=== PATIENT | female | born 1985 | race Two or more races ===

== ENCOUNTER → 2022-12-27 | Outpatient (CLI) | payer BC ==
[2022-12-27 09:07] LABS: Urine WBC None Seen /hpf (0 - 5)
[2022-12-27 09:16] LABS: Basophils # (auto) 0.1 10 ^3/uL (0-0.2); Basophils % (auto) 1.2 % (0.0-2.0); Eosinophils # (auto) 0.2 10 ^3/uL (0-0.8); Eosinophils % (auto) 3.1 % (0.0-7.0); Hematocrit 40.6 % (36.0-46.0); Hemoglobin 13.4 g/dL (12.2-16.2); Lymphocytes # (auto) 1.4 10 ^3/uL (0.4-5.4); Lymphocytes % (auto) 29.3 % (10.0-50.0); Mean Corpuscular Hemoglobin 27.6 pg (28.0-32.0); Mean Corpuscular Hgb Conc. 32.9 g/dL (32.0-36.0); Monocytes # (auto) 0.5 10 ^3/uL (0-1.3); Monocytes % (auto) 9.9 % (0.0-12.0); Neutrophils # (auto) 2.7 10 ^3/uL (1.6-8.6); Neutrophils % (auto) 56.5 % (37.0-80.0); Red Blood Cells 4.83 10^6/uL (4.0-5.20); Red Cell Distribution Width 14.3 % (11.8-14.3); White Blood Cell 4.8 10^3/uL (4.4-10.8)
[2022-12-27 09:47] LABS: Urine Bacteria NONE SEEN /hpf (None Seen); Urine Blood 3+ /uL (Negative); Urine Clarity Clear (Clear); Urine Color Yellow (Yellow); Urine Mucus FEW (None Seen); Urine Protein, UAD TRACE (Negative); Urine Urobilinogen Normal (Negative)
[2022-12-27 10:09] LABS: Erythrocyte Sedimentation Rate 9 mm/hr (0-20)
[2022-12-27 10:31] LABS: Alanine Aminotransferase 46 U/L (7-40); Alkaline Phosphatase 103 U/L (46-116); Anion Gap 6 (5-15); BUN/Creatinine Ratio 7.9 (10.0-20.0); Blood Urea Nitrogen 7 mg/dL (9-23); Calcium 9.2 mg/dL (8.5-10.1); Carbon Dioxide 26 mmol/L (20-30); Chloride 106 mmol/L (98-107); Glucose 122 mg/dL (74-106); LDL Cholesterol 74 mg/dL (< 100); Potassium 4.4 mmol/L (3.5-5.1); Sodium 138 mmol/L (136-145); Triglycerides 92 mg/dL (< 150)
[2022-12-27 10:32] LABS: Albumin 4.3 g/dL (3.2-4.8); Aspartate Aminotransferase 37 U/L (13-40); Cholesterol 135 mg/dL (< 200); HDL Cholesterol 48 mg/dL (40-59)
[2022-12-27 10:33] LABS: Bilirubin, Total 0.6 mg/dL (0.2-1.0); Total Protein 7.8 g/dL (5.7-8.2)
== END | disposition home or self-care (01) ==
LOC: LAB 08:57
PROVIDERS: ATTEND Internal Medicine
DX: D17.23 Benign lipomatous neoplasm of skin and subcutaneous tissue of right leg (principal)
CPT/HCPCS: 36415; 80053; 80061; 81001; 84439; 84443; 85025; 85652

== ENCOUNTER → 2024-02-25 | Outpatient (CLI) | payer BC ==
[2024-02-25 07:26] LABS: Urine Bacteria None Seen /hpf (None Seen)
[2024-02-25 08:09] LABS: Basophils # (auto) 0 10 ^3/uL (0-0.2); Basophils % (auto) 0.5 % (0.0-2.0); Eosinophils # (auto) 0.2 10 ^3/uL (0-0.8); Eosinophils % (auto) 2.3 % (0.0-7.0); Hematocrit 40.3 % (36.0-46.0); Hemoglobin 13.3 g/dL (12.2-16.2); Lymphocytes # (auto) 2.3 10 ^3/uL (0.4-5.4); Mean Corpuscular Volume 84.8 fL (80.0-100.0); Monocytes # (auto) 0.5 10 ^3/uL (0-1.3); Monocytes % (auto) 5.6 % (0.0-12.0); Neutrophils # (auto) 6.2 10 ^3/uL (1.6-8.6); Neutrophils % (auto) 66.6 % (37.0-80.0); Platelet Count (auto) 290 10^3/uL (140-450); Red Blood Cells 4.75 10^6/uL (4.0-5.20); Red Cell Distribution Width 14.4 % (11.8-14.3); White Blood Cell 9.3 10^3/uL (4.4-10.8)
[2024-02-25 08:43] LABS: Urine Blood Negative /uL (Negative); Urine Clarity Clear (Clear); Urine Color Yellow (Yellow); Urine Mucus FEW (None Seen); Urine Protein, UAD TRACE (Negative); Urine Specific Gravity 1.029 (1.001-1.035); Urine Urobilinogen Normal (Negative); Urine WBC 5 /hpf (0 - 5)
[2024-02-25 08:53] LABS: Alanine Aminotransferase 19 U/L (7-40); Albumin 4.4 g/dL (3.2-4.8); Alkaline Phosphatase 106 U/L (46-116); Anion Gap 8 (5-15); Aspartate Aminotransferase 19 U/L (13-40); Bilirubin, Total 0.6 mg/dL (0.2-1.0); Blood Urea Nitrogen 11 mg/dL (9-23); Calcium 10.1 mg/dL (8.7-10.4); Carbon Dioxide 27 mmol/L (20-31); Chloride 105 mmol/L (98-107); Cholesterol 139 mg/dL (< 200); HDL Cholesterol 56 mg/dL (40-59); LDL Cholesterol 73 mg/dL (< 100); Potassium 4.1 mmol/L (3.5-5.1); Sodium 140 mmol/L (136-145); Total Protein 7.6 g/dL (5.7-8.2); Triglycerides 97 mg/dL (< 150)
[2024-02-25 08:55] LABS: Glucose 118 mg/dL (74-106)
[2024-02-25 09:02] LABS: Erythrocyte Sedimentation Rate 15 mm/hr (0-20)
[2024-02-25 11:11] LABS: Free T4 (Free Thyroxine) 1.08 ng/dL (0.89-1.76)
== END | disposition home or self-care (01) ==
LOC: LAB 07:06
PROVIDERS: ATTEND Internal Medicine
DX: I10 Essential (primary) hypertension (principal); E11.9 Type 2 diabetes mellitus without complications; Z79.899 Other long term (current) drug therapy
CPT/HCPCS: 36415; 80053; 80061; 81001; 82607; 83036; 84439; 84443; 85025; 85652

== ENCOUNTER 2024-10-21 08:39 | Inpatient (IN) | payer BC ==
[~2024-10-21] VITALS: Ht 154.9 cm; Wt 92.1 kg
--- NOTE | 2024-10-21 09:38 | ED.PDOC ---
General HPI Comments 39 y/o F, with PMHx of DM and HTN presents to the ED for CC of flank pain. Patient states, she has been experiencing right flank pain onset, yesterday (10/20/24). Patient denies dysuria, frequency, back pain, fever, nausea, vomiting, or diarrhea. No other associated symptoms, modifiers, recent injuries or sick contacts present at this time. Chief Complaint: Flank Pain Time Seen by MD: 09:10 Reviewed notes: Nurses Notes, Medications, Allergies Allergies: Coded Allergies: NO KNOWN ALLERGIES (Unverified , 10/21/24) Information Source: Patient Mode of Arrival: Ambulatory Severity: Moderate Timing: Days Duration: Since onset Prehospital treatment: None Symptoms: None History of: None Location: (R) Flank Modifying factors: None associated signs and symptoms: Flank Pain Past Medical History PAST MEDICAL HISTORY: DM, HTN Surgical History: Denies all surgeries ENGINEERING SPECIALIST TECHNICIAN History: Denies all ENGINEERING SPECIALIST TECHNICIAN Hx Family History Family History: Unknown Social History Smoker: Non-Smoker Alcohol: Denies ETOH Use Drugs: Denies Drug Use Lives In: Home Constitutional: denies: chills, diaphoresis, fatigue, fever, malaise, sweats, weakness, others EENTM: denies: blurred vision, double vision, ear bleeding, ear discharge, ear drainage, ear pain, ear ringing, eye pain, eye redness, hearing loss, mouth pain, mouth swelling, nasal discharge, nose bleeding, nose congestion, nose pain, photophobia, tearing, throat pain, throat swelling, voice changes, others Respiratory: denies: cough, hemoptysis, orthopnea, SOB at rest, shortness of breath, SOB with excertion, stridor, wheezing, others Cardiovascular: denies: chest pain, dizzy spells, diaphoresis, Dyspnea on exertion, edema, irregular heart beat, left arm pain, lightheadedness, palpitations, PND, syncope, others Gastrointestinal: denies: abdomen distended, abdominal pain, blood streaked bowels, constipated, diarrhea, dysphagia, difficulty swallowing, hematemesis, melena, nausea, poor appetite, poor fluid intake, rectal bleeding, rectal pain, vomiting, others Genitourinary: reports: flank pain; denies: abnormal vagina bleeding, burning, dyspareunia, dysuria, frequency, hematuria, incontinence, pain, , vagina discharge, urgency, others Neurological: denies: dizziness, fainting, headache, left sided numbness, left sided weakness, numbness, paresthesia, pre-existing deficit, right sided numbness, right sided weakness, seizure, speech problems, tingling, tremors, weakness, others Musculoskeletal: denies: back pain, gout, joint pain, joint swelling, muscle pain, muscle stiffness, neck pain, others Integumetry: denies: bruises, change in color, change in hair/nails, dryness, laceration, lesions, lumps, rash, wounds, others Allergic/Immunocompromised: denies: Difficulty Healing, Frequent Infections, H kaushik, Itching, others Hematologic/Lymphatic: denies: anemia, blood clots, easy bleeding, easy bruising, swollen glands, others Endocrine: denies: excessive hunger, excessive sweating, excessive thirst, excessive urination, flushing, intolerance to cold, intolerance to heat, unexplained weight gain, unexplained weight loss, others Psychiatric: denies: anxiety, bipolar disorder, depression, hopeless, panic disorder, schizophrenia, sleepless, suicidal, others All Other Systems: Reviewed and Negative Physical Exam General Appearance: Moderate Distress HEENT: Normal ENT Inspection, Pharynx Normal, TMs Normal Neck: Full Range of Motion, Non-Tender, Normal, Normal Inspection Respiratory: Chest Non-Tender, Lungs Clear, No Accessory Muscle Use, No Respiratory Distress, Normal Breath Sounds Cardiovascular: No Edema, No JVD, No Murmur, No Gallop, Normal Peripheral Pulses, Regular Rate/Rhythm Breast Exam: Deferred Gastrointestinal: RUQ Genitalia: Deferred Pelvic: Deferred Rectal: Deferred Extremities: No calf tenderness, Normal capillary refill, Normal inspection, Normal range of motion, Non-tender, No pedal edema Musculoskeletal : Apperance: Normal Neurologic: Alert, managing consultant clinical professor II-XII nml as Tested, No Motor Deficits, Normal Affect, Normal Mood, No Sensory Deficits Cerebellar Function: Normal Reflexes: Normal Skin: Dry, Normal Color, Warm Peripheral Pulses: 3+ Radial (R), 3+ Radial (L) Lymphatic: No Adenopathy Was a procedure done? Was a procedure done?: No Differential Diagnosis Kidney stone (Female): Cholelithiasis, Pyelonephritis, Urinary obstruction, Urolithiasis Kidney stone (Male): N/A Penile/Scrotal: N/A Urinary Problem (Male): N/A X-Ray, Labs, Meds, VS Vital Signs Date Time Temp Pulse Resp B/P (MAP) Pulse Ox O2 Delivery O2 Flow Rate FiO2 10/21/24 08:41 98.3 132 20 145/97 96 98.3 Lab Test 10/21/24 09:21 10/21/24 08:45 Range/Units White Blood Count 14.2 H 4.4-10.8 10^3/uL Red Blood Count 5.13 4.0-5.20 10^6/uL Hemoglobin 14.4 12.2-16.2 g/dL Hematocrit 42.8 36.0-46.0 % Mean Corpuscular Volume 83.4 80.0-100.0 fL Mean Corpuscular Hemoglobin 28.0 28.0-32.0 pg Mean Corpuscular Hemoglobin Concent 33.6 32.0-36.0 g/dL Red Cell Distribution Width 13.8 11.8-14.3 % Platelet Count 339 140-450 10^3/uL Mean Platelet Volume 9.9 6.9-10.8 fL Neutrophils (%) (Auto) 80.9 H 37.0-80.0 % Lymphocytes (%) (Auto) 11.2 10.0-50.0 % Monocytes (%) (Auto) 7.3 0.0-12.0 % Eosinophils (%) (Auto) 0.4 0.0-7.0 % Basophils (%) (Auto) 0.2 0.0-2.0 % Neutrophils # (Auto) 11.5 H 1.6-8.6 10 ^3/uL Lymphocytes # (Auto) 1.6 0.4-5.4 10 ^3/uL Monocytes # (Auto) 1.0 0-1.3 10 ^3/uL Eosinophils # (Auto) 0.1 0-0.8 10 ^3/uL Basophils # (Auto) 0 0-0.2 10 ^3/uL Nucleated Red Blood Cells 0.1 % Sodium Level 138 136-145 mmol/L Potassium Level 4.1 3.5-5.1 mmol/L Chloride Level 104 98-107 mmol/L Carbon Dioxide Level 20 20-31 mmol/L Anion Gap 14 5-15 Blood Urea Nitrogen 10 9-23 mg/dL Creatinine 1.01 0.550-1.02 mg/dL Glomerular Filtration Rate Calc 72 >90 mL/min BUN/Creatinine Ratio 9.9 L 10.0-20.0 Serum Glucose 145 H 74-106 mg/dL Calcium Level 9.8 8.7-10.4 mg/dL Urine Color Light-orange Yellow Urine Clarity Turbid H Clear Urine pH 6.0 5.0-9.0 Urine Specific [place] 1.029 1.001-1.035 Urine Protein 2+ H Negative Urine Ketones 4+ H Negative Urine Blood Trace H Negative /uL Urine Nitrite Negative Negative Urine Bilirubin 1+ H Negative Urine Urobilinogen 3 H Negative mg/dL Urine Leukocyte Esterase 3+ Negative /uL Urine RBC 11 0 - 4 /hpf Urine Microscopic WBC 81 H 0-5 /HPF Urine Squamous Epithelial Cells Mod <5 /hpf Urine Bacteria Few H None Seen /hpf Urine Hyaline Casts Few 0 - 2 /lpf Urine Mucus Few None Seen Urine Glucose Trace Normal mg/dL [place] [id number] Ph: [phone] DIAGNOSTIC IMAGING Diagnostic Imaging Report : [id number] Signed PATIENT: SARI CRUZ ACCT: [id number] UNIT: [id number] : 1985 LOC: ER ROOM / BED: / AGE / SEX: 39 / F ADM STATUS: REG ER SERVICE 3 ORDERING PHYSICIAN: ZACHARY PATEL MD PROCEDURE(s): ABPL - CT AB PEL WO CON-NO ORAL OR IV REASON: stone ORDER NUMBER(s): [id number], ACCESSION NUMBER(s): [id number] CT CT AB PEL WO CON-NO ORAL OR IV INDICATION: stone EXAM DATE: 10/21/2024 09:23 AM COMPARISON: None RADIATION DOSE: CTDIvol: 19.41 mGy, DLP: 1000.45 mGy*cm PROCEDURE: Helical CT images were obtained of the abdomen and pelvis without IV contrast Sagittal and coronal reconstructions are provided. ORAL CONTRAST: None. ADDITIONAL IMAGES / REFORMATS: None All CT scans at this medical facility are performed using dose modulation techniques as appropriate to a performed exam including the following: Automated exposure control was utilized; adjustment of the MA and/or KV according to patient size; and use of iterative reconstruction technique. FINDINGS: LUNG BASE: Normal. LIVER: Normal. GALLBLADDER AND BILIARY TREE: Cholelithiasis with findings consistent with cholecystitis. No intra- or extrahepatic biliary ductal dilation. PANCREAS: Normal. SPLEEN: Normal. BOWEL: Mild colonic diverticulosis. Appendix appears normal. ADRENALS: Normal. KIDNEYS AND URETER: Normal. BLADDER: Normal. REPRODUCTIVE ORGANS: Normal. LYMPH NODES:No lymphadenopathy. PERITONEUM: No ascites or free air. No other fluid collection. VESSELS: Scattered atherosclerotic calcifications are noted. RETROPERITONEUM: Normal. ABDOMINAL WALL: Normal. BONES: Scattered osseous degenerative changes are noted. IMPRESSION: Cholelithiasis with findings consistent with cholecystitis. ATED BY: BRENT IBARRA MD DICTATED DATE/TIME: 10/21/241012 SIGNED BY: BRENT IBARRA MD SIGNED DATE/TIME: 10/21/241012 CC: Patient alert. Complaining of right upper quadrant pain. Vitals stable. Answering questions. CT scan of the abdomen reviewed does show acute cholecystitis. Urinalysis shows UTI. Sepsis. Establish intravenous access. Was given fluids. Was given Rocephin. Was given Flagyl. Was given morphine. Was given Zofran. Explained to the patient. Continue to monitor. Time of 1ST Reevaluation: 09:40 Reevaluation 1ST: Unchanged Patient Education/Counseling: Diagnosis, Treatment Family Education/Counseling: No Family Present SEPSIS Sepsis Screen Date sepsis recognized/suspect: Oct 21, 2024 Time Sepsis recognized/suspect: 08 Recent Procedure: No On Antibiotic Therapy: No Respiratory Rate >20: No Heart Rate >90: Yes Temp<36 C (96.8 F) or >38.3 C: No SBP <90 or MAP <65 mmHG: No New Acute Mental Status Change: No Is the patient on CPAP, BIPAP,: No Physician Orders Ct Ab Pel Wo Con-No Oral Or Iv (10/21/24 09:24) Blood Culture (10/21/24 11:35) Lactic Acid W/ Reflex Order (10/21/24 11:35) Ceftriaxone Ivpb Rocephin (10/21/24 11:45) Clindamycin Ivpb Cleocin (10/21/24 11:45) 1 Liter Bolus Of 0.9% Ns (10/21/24 11:45) 0.9% Ns 30mls/Kg (10/21/24 11:45) Vital Signs Date Time Temp Pulse Resp B/P (MAP) Pulse Ox O2 Delivery O2 Flow Rate FiO2 10/21/24 08:41 98.3 132 20 145/97 96 98.3 Laboratory Tests Test 10/21/24 09:21 White Blood Count 14.2 10^3/uL (4.4-10.8) H Departure 1 Departure Time of Disposition: 11:38 Impression: Primary Impression: Sepsis Qualified Codes: A41.9 - Sepsis, unspecified organism Additional Impression: Acute cholecystitis Disposition: ADMITTED INPATIENT Admit to: Med Surg Condition: Guarded Critical Care Note Critical Care Time?: Yes (90 min-critical care time only) Stability Stability form required: No Heart Score Heart Score: Heart Score Response (Comments) Value History N/A 0 EKG N/A 0 Age N/A 0 Risk Factors N/A 0 Troponin N/A 0 Total 0 I personally scribed for ZACHARY PATEL MD ([email or web address]) on 10/21/24 at 09:38. Electronically submitted by Kimberly Russo ([email or web address]). I personally scribed for ZACHARY PATEL MD ([email or web address]) on 10/21/24 at 09:43. Electronically submitted by Kimberly Russo ([email or web address]). I personally scribed for ZACHARY PATEL MD ([email or web address]) on 10/21/24 at 10:34. Electronically submitted by Kimberly Russo ([email or web address]). ZACHARY PATEL MD Oct 21, 2024 09:38
[2024-10-21 09:44] LABS: Hematocrit 42.8 % (36.0-46.0); Hemoglobin 14.4 g/dL (12.2-16.2); Mean Corpuscular Hemoglobin 28.0 pg (28.0-32.0); Mean Corpuscular Volume 83.4 fL (80.0-100.0); Nucleated Red Blood Cells % 0.1 %
[2024-10-21 09:49] LABS: Chloride 104 mmol/L (98-107); Potassium 4.1 mmol/L (3.5-5.1); Sodium 138 mmol/L (136-145)
[2024-10-21 09:50] LABS: Anion Gap 14 (5-15)
[2024-10-21 09:51] LABS: Calcium 9.8 mg/dL (8.7-10.4)
[2024-10-21 09:52] LABS: Carbon Dioxide 20 mmol/L (20-31)
[2024-10-21 09:56] LABS: BUN/Creatinine Ratio 9.9 (10.0-20.0); Blood Urea Nitrogen 10 mg/dL (9-23)
[2024-10-21 09:57] LABS: Glucose 145 mg/dL (74-106)
--- NOTE | 2024-10-21 10:15 | DVH ---
CT CT AB PEL WO CON-NO ORAL OR IV INDICATION: stone EXAM DATE: 10/21/2024 09:23 AM COMPARISON: None RADIATION DOSE: CTDIvol: 19.41 mGy, DLP: 1000.45 mGy*cm PROCEDURE: Helical CT images were obtained of the abdomen and pelvis without IV contrast Sagittal and coronal reconstructions are provided. ORAL CONTRAST: None. ADDITIONAL IMAGES / REFORMATS: None All C T scans at this medical facility are performed using dose modulation techniques as appropriate to a p erformed exam including the following: Automated exposure control was utilized; adjustment of the MA and/or KV according to patient size; and use of iterative reconstruction technique. FINDINGS: LUNG BASE: Normal. LIVER: Normal. GALLBLADDER AND BILIARY TREE: Cholelithiasis with findings consistent with cholecystitis. No intra- o r extrahepatic biliary ductal dilation. PANCREAS: Normal. SPLEEN: Normal. BOWEL: Mild colonic diverticulosis. Appendix appears normal. ADRENALS: Normal. KIDNEYS AND URETER: Normal. BLADDER: Normal. REPRODUCTIVE ORGANS: Normal. LYMPH NODES:No lymphadenopathy. PERITONEUM: No ascites or free air. No other fluid collection. VESSELS: Scattered atherosclerotic calcifications are noted. RETROPERITONEUM: Normal. ABDOMINAL WALL: Normal. BONES: Scattered osseous degenerative changes are noted. IMPRESSION: Cholelithiasis with findings consistent with cholecystitis.
[2024-10-21 11:14] LABS: Urine Protein, UAD 2+ (Negative)
[2024-10-21] MEDS: SODIUM CHLORIDE 0.9% 1,000 ML IV ONE ×4 (13:08→21:07)
[2024-10-21] MEDS: MORPHINE SULFATE 4 MG/ML SYR/VIAL IV ONE (13:09)
[2024-10-21] MEDS: ONDANSETRON HCL 4 MG/2 ML VIAL IV ONE (13:09)
[2024-10-21] MEDS: cefTRIAXone 1GM/50ML D5W 50 ML IV ONE (14:48)
[2024-10-21] MEDS: CLINDAMYCIN 300MG IV 50 ML IV ONE (17:49)
[2024-10-21] MEDS ORDERED: ONDANSETRON HCL 4 MG/2 ML VIAL IV PRN (20:30)
--- NOTE | 2024-10-21 21:01 | DVH ---
CHEST RADIOGRAPH Indication: preop Technique: 1 view Comparison: None FINDINGS: Lines and Tubes: None Lungs: No focal consolidation. Pleura: No effusion or pneumothorax. Cardiomediastinal contours: Unremarkable. Other: No acute osseous abnormality. IMPRESSION: 1. No acute cardiopulmonary abnormality.
--- NOTE | 2024-10-21 21:40 | DVHHP2 ---
History of Present Illness Reason for Visit: Abdominal pain History of Present Illness 39-year-old female presents for evaluation of abdominal. Patient endorses a two day history of right upper quadrant abdominal pain that radiates to her back with associated nausea and vomiting. Denies fever or chills. No other acute complaints reported. Past Medical History Hypertension, diabetes mellitus Past Surgical History Denies Family History Noncontributory Smoke: No ALCOHOL: none Drugs: None Lives: with Family Review of Systems Review of Systems Review of systems are currently negative otherwise addressed in HPI. Allergies: Coded Allergies: NO KNOWN ALLERGIES (Unverified , 10/21/24) Medications Current Medications Medications Dose Ordered Sig/Glenis Route Start Time Stop Time Status Last Admin Dose Admin Ceftriaxone Sodium 50 ml @ 100 mls/hr DAILY@09 IV 10/22/24 09:00 Metronidazole 100 ml @ 100 mls/hr Q8HR IV 10/21/24 22:00 Pantoprazole Sodium 40 mg DAILY IV 10/22/24 10:00 Ondansetron HCl 4 mg Q4HP PRN IV 10/21/24 20:30 Morphine Sulfate 2 mg Q4HPRN PRN IV 10/21/24 20:30 Exam Vital Signs Vital Signs Date Time Temp Pulse Resp B/P (MAP) Pulse Ox O2 Delivery O2 Flow Rate FiO2 10/21/24 19:26 112 18 135/95 (108) 98 10/21/24 12:54 98.7 98.7 10/21/24 12:54 Room Air Exam Gen: 39-year-old female in mild distress Skin: Warm, dry, normal color and texture, no rash. HEENT: Normocephalic atraumatic, mucous membranes moist and pink. Neck: Cervical and supraclavicular nodes normal without enlargement, trachea is midline, thyroid gland is normal without masses. Pulmonary: Clear to auscultation and percussion bilaterally. Cardiac: Regular rate and rhythm. No murmur Abdomen: Soft, right upper quadrant tenderness, nondistended, bowel sounds present all 4 quadrants, no guarding, no rigidity, no organomegaly. Extremities: No cyanosis, clubbing, no edema Neuro: Cranial nerves II through XII grossly intact, normal affect and speech, no focal motor deficits. Labs/Xrays ORDERING PHYSICIAN: KRIS NEGRETE PROCEDURE(s): CXR1 - CHEST XRAY 1 VIEW REASON: preop ORDER NUMBER(s): [id number], ACCESSION NUMBER(s): [id number] CHEST RADIOGRAPH Indication: preop Technique: 1 view Comparison: None FINDINGS: Lines and Tubes: None Lungs: No focal consolidation. Pleura: No effusion or pneumothorax. Cardiomediastinal contours: Unremarkable. Other: No acute osseous abnormality. IMPRESSION: 1. No acute cardiopulmonary abnormality. RING PHYSICIAN: ZACHARY PATEL MD PROCEDURE(s): ABPL - CT AB PEL WO CON-NO ORAL OR IV REASON: stone ORDER NUMBER(s): [id number], ACCESSION NUMBER(s): [id number] CT CT AB PEL WO CON-NO ORAL OR IV INDICATION: stone EXAM DATE: 10/21/2024 09:23 AM COMPARISON: None RADIATION DOSE: CTDIvol: 19.41 mGy, DLP: 1000.45 mGy*cm PROCEDURE: Helical CT images were obtained of the abdomen and pelvis without IV contrast Sagittal and coronal reconstructions are provided. ORAL CONTRAST: None. ADDITIONAL IMAGES / REFORMATS: None All CT scans at this medical facility are performed using dose modulation techniques as appropriate to a performed exam including the following: Automated exposure control was utilized; adjustment of the MA and/or KV according to patient size; and use of iterative reconstruction technique. FINDINGS: LUNG BASE: Normal. LIVER: Normal. GALLBLADDER AND BILIARY TREE: Cholelithiasis with findings consistent with chol ecystitis. No intra- or extrahepatic biliary ductal dilation. PANCREAS: Normal. SPLEEN: Normal. BOWEL: Mild colonic diverticulosis. Appendix appears normal. ADRENALS: Normal. KIDNEYS AND URETER: Normal. BLADDER: Normal. REPRODUCTIVE ORGANS: Normal. LYMPH NODES:No lymphadenopathy. PERITONEUM: No ascites or free air. No other fluid collection. VESSELS: Scattered atherosclerotic calcifications are noted. RETROPERITONEUM: Normal. ABDOMINAL WALL: Normal. BONES: Scattered osseous degenerative changes are noted. IMPRESSION: Cholelithiasis with findings consistent with cholecystitis. Labs Test 10/21/24 20:40 10/21/24 12:03 10/21/24 09:21 10/21/24 08:45 Range/Units Lactic Acid Level 1.2 0.4-2.0 mmol/L White Blood Count 14.2 H 4.4-10.8 10^3/uL Red Blood Count 5.13 4.0-5.20 10^6/uL Hemoglobin 14.4 12.2-16.2 g/dL Hematocrit 42.8 36.0-46.0 % Mean Corpuscular Volume 83.4 80.0-100.0 fL Mean Corpuscular Hemoglobin 28.0 28.0-32.0 pg Mean Corpuscular Hemoglobin Concent 33.6 32.0-36.0 g/dL Red Cell Distribution Width 13.8 11.8-14.3 % Platelet Count 339 140-450 10^3/uL Mean Platelet Volume 9.9 6.9-10.8 fL Neutrophils (%) (Auto) 80.9 H 37.0-80.0 % Lymphocytes (%) (Auto) 11.2 10.0-50.0 % Monocytes (%) (Auto) 7.3 0.0-12.0 % Eosinophils (%) (Auto) 0.4 0.0-7.0 % Basophils (%) (Auto) 0.2 0.0-2.0 % Neutrophils # (Auto) 11.5 H 1.6-8.6 10 ^3/uL Lymphocytes # (Auto) 1.6 0.4-5.4 10 ^3/uL Monocytes # (Auto) 1.0 0-1.3 10 ^3/uL Eosinophils # (Auto) 0.1 0-0.8 10 ^3/uL Basophils # (Auto) 0 0-0.2 10 ^3/uL Nucleated Red Blood Cells 0.1 % Sodium Level 138 136-145 mmol/L Potassium Level 4.1 3.5-5.1 mmol/L Chloride Level 104 98-107 mmol/L Carbon Dioxide Level 20 20-31 mmol/L Anion Gap 14 5-15 Blood Urea Nitrogen 10 9-23 mg/dL Creatinine 1.01 0.550-1.02 mg/dL Glomerular Filtration Rate Calc 72 >90 mL/min BUN/Creatinine Ratio 9.9 L 10.0-20.0 Serum Glucose 145 H 74-106 mg/dL Calcium Level 9.8 8.7-10.4 mg/dL Urine Color Light-orange Yellow Urine Clarity Turbid H Clear Urine pH 6.0 5.0-9.0 Urine Specific [place] 1.029 1.001-1.035 Urine Protein 2+ H Negative Urine Ketones 4+ H Negative Urine Blood Trace H Negative /uL Urine Nitrite Negative Negative Urine Bilirubin 1+ H Negative Urine Urobilinogen 3 H Negative mg/dL Urine Leukocyte Esterase 3+ Negative /uL Urine RBC 11 0 - 4 /hpf Urine Microscopic WBC 81 H 0-5 /HPF Urine Squamous Epithelial Cells Mod <5 /hpf Urine Bacteria Few H None Seen /hpf Urine Hyaline Casts Few 0 - 2 /lpf Urine Mucus Few None Seen Urine Glucose Trace Normal mg/dL SEPSIS Sepsis Screen Date sepsis recognized/suspect: Oct 21, 2024 Time Sepsis recognized/suspect: 842 Recent Procedure: No On Antibiotic Therapy: No Respiratory Rate >20: No Heart Rate >90: Yes Temp<36 C (96.8 F) or >38.3 C: No SBP <90 or MAP <65 mmHG: No New Acute Mental Status Change: No Is the patient on CPAP, BIPAP,: No Physician Orders Admit (10/21/24 18:58) * Surgical Consult (10/21/24 ) Ceftriaxone 1gm/50ml D5w (Rocephin) (10/22/24 09:00) Metronidazole 500mg/100ml (Flagyl 500mg/ (10/21/24 22:00) Sodium Chloride 0.9% (10/21/24 20:30) Pantoprazole (Protonix) (10/22/24 10:00) PTPTT (10/21/24 20:26) Type And Screen (10/21/24 20:26) Chest Xray 1 View (10/21/24 20:26) Ondansetron Hcl (Zofran) (10/21/24 20:30) Complete Blood Count (10/22/24 04:00) Comprehensive Metabolic Panel (10/22/24 04:00) Npo (Nothing By Mouth) Diet (10/22/24 Breakfast) Condition: Stable (10/21/24 20:26) Bedrest With Bathroom Privileg (10/21/24 20:26) Morphine Sulfate Injection (10/21/24 20:30) Vital Signs Date Time Temp Pulse Resp B/P (MAP) Pulse Ox O2 Delivery O2 Flow Rate FiO2 10/21/24 19:26 112 18 135/95 (108) 98 Laboratory Tests Test 10/21/24 12:03 Lactic Acid Level 1.2 mmol/L (0.4-2.0) Medications Medications Dose Ordered Sig/Glenis Route Start Time Stop Time Status Last Admin Dose Admin Ceftriaxone Sodium 50 ml @ 100 mls/hr ONCE ONCE IV 10/21/24 11:45 10/21/24 12:14 DC 10/21/24 14:48 100 MLS/HR Clindamycin Phosphate 50 ml @ 50 mls/hr ONCE ONCE IV 10/21/24 11:45 10/21/24 12:44 DC 10/21/24 17:49 50 MLS/HR Sodium Chloride 1,000 ml @ 1,000 mls/hr Q1H ONCE IV 10/21/24 11:45 10/21/24 12:44 DC 10/21/24 13:08 1,000 MLS/HR Sodium Chloride 1,000 ml @ 1,000 mls/hr Q1H ONCE IV 10/21/24 11:45 10/21/24 12:44 DC 10/21/24 13:09 1,000 MLS/HR Assessment/Plan Assessment/Plan Assessment Acute abdominal pain Acute cholecystitis Leukocytosis UTI Plan Admit the patient to [facility] to the hospitalist Surgical consultation Maintenance IV fluids NPO Pain management Continue treatment per orders. Plan discussed with: Patient My Orders Orders - KRIS NEGRETE Procedure Category Date Status Time Admit ADMIT 10/21/24 Transmitted 18:58 * Surgical Consult CONS 10/21/24 Transmitted Ceftriaxone 1gm/50ml PHA 10/22/24 In Process D5w (Rocephin) 09:00 Metronidazole PHA 10/21/24 In Process 500mg/100ml (Flagyl 22:00 Sodium Chloride 0.9% PHA 10/21/24 In Process 20:30 Pantoprazole PHA 10/22/24 In Process (Protonix) 10:00 PTPTT LAB 10/21/24 In Process 20:26 Type And Screen BBK 10/21/24 Logged 20:26 Chest Xray 1 View XY 10/21/24 Resulted 20:26 Ondansetron Hcl PHA 10/21/24 In Process (Zofran) 20:30 Complete Blood Count LAB 10/22/24 Verified 04:00 Comprehensive LAB 10/22/24 Verified Metabolic Panel 04:00 Npo (Nothing By DIET 10/22/24 Transmitted Mouth) Diet Breakfast Condition: Stable OCTAVIANO 10/21/24 In Process 20:26 Bedrest With Bathroom OCTAVIANO 10/21/24 In Process Privileg 20:26 Morphine Sulfate PHA 10/21/24 In Process Injection 20:30 Date of Service: Oct 21, 2024 Billing Provider: KRIS NEGRETE Common Visit Codes: [id number] INP/OBS CARE (HIGH) KRIS NEGRETE Oct 21, 2024 21:40
[2024-10-21 21:46] LABS: INR 1.14 (0.9-1.15); Partial Thromboplastin Time 27.5 SEC (24.5-34.5); Prothrombin Time 11.9 sec (9.3-11.8)
[2024-10-21] MEDS: PANTOPRAZOLE 40 MG/10 ML VIAL INJ IV ONE (22:32)
[2024-10-21] MEDS: MORPHINE SULFATE INJ 2 MG/ml SYRG IV PRN (22:33)
[2024-10-21 23:18] VITALS: BP 156/95; PULSE 113; RESP 17; RESP 18; TEMP 98.3; O2SAT 98
[2024-10-21] MEDS ORDERED: LISI20TA56 PO (23:48)
[2024-10-21] MEDS ORDERED: METF-370 PO (23:48)
[2024-10-22] VITALS (8 sets, daily range): BP systolic 141–157; BP diastolic 94–108; PULSE 90–139; RESP 15–20; TEMP 97–98.7; O2SAT 95–98
[2024-10-22 07:47] LABS: Hematocrit 37.2 % (36.0-46.0); Hemoglobin 12.8 g/dL (12.2-16.2); Mean Corpuscular Hemoglobin 28.8 pg (28.0-32.0); Mean Corpuscular Volume 84.0 fL (80.0-100.0); Nucleated Red Blood Cells % 0.0 %
[2024-10-22 08:14] LABS: Alanine Aminotransferase 12 U/L (7-40); Alkaline Phosphatase 86 U/L (46-116); Anion Gap 12 (5-15); BUN/Creatinine Ratio 8.9 (10.0-20.0); Calcium 9.2 mg/dL (8.7-10.4); Carbon Dioxide 22 mmol/L (20-31); Potassium 4.0 mmol/L (3.5-5.1); Sodium 141 mmol/L (136-145); Total Protein 7.2 g/dL (5.7-8.2)
[2024-10-22 08:15] LABS: Albumin 4.4 g/dL (3.2-4.8)
[2024-10-22 08:16] LABS: Bilirubin, Total 0.9 mg/dL (0.2-1.0); Blood Urea Nitrogen 7 mg/dL (9-23); Chloride 107 mmol/L (98-107); Glucose 111 mg/dL (74-106)
[2024-10-22] MEDS: PANTOPRAZOLE 40 MG/10 ML VIAL INJ IV SCH (08:52)
[2024-10-22] MEDS: cefTRIAXone 1GM/50ML D5W 50 ML IV SCH (08:52)
--- NOTE | 2024-10-22 09:25 | DVHINCON2 ---
Date of service: Oct 22, 2024 Family History: Diabetes mellitus G8 MOTHER Allergies: Coded Allergies: NO KNOWN ALLERGIES (Unverified , 10/21/24) Home Meds Reported Medications Metformin Hydrochloride (Metformin Hcl) 500 Mg Tab, 500 MG PO DAILY for 30 Days, MG 10/21/24 Lisinopril (Lisinopril) 20 Mg Tab, 20 MG PO DAILY for 30 Days, MG 10/21/24 Current Medications Current Medications Medications (Trade) Dose Ordered Sig/Glenis Route PRN Reason Start Time Stop Time Status Last Admin Ceftriaxone Sodium 50 ml @ 100 mls/hr DAILY@09 IV 10/22/24 09:00 10/22/24 08:52 Metronidazole 100 ml @ 100 mls/hr Q8HR IV 10/21/24 22:00 10/22/24 05:10 Pantoprazole Sodium (Protonix) 40 mg DAILY IV 10/22/24 10:00 10/22/24 08:52 Ondansetron HCl (Zofran) 4 mg Q4HP PRN IV NAUSEA / VOMITING 10/21/24 20:30 Morphine Sulfate 2 mg Q4HPRN PRN IV SEVERE PAIN (7-10 PAIN SCALE) 10/21/24 20:30 10/22/24 02:08 Vital Signs Vital Signs Date Time Temp Pulse Resp B/P (MAP) Pulse Ox O2 Delivery O2 Flow Rate FiO2 10/22/24 05:00 98.7 109 20 148/94 (112) 98 98.7 10/21/24 23:18 Room Air* 0 21 Labs/Diagnostic Data Labs Test 10/22/24 06:33 10/21/24 20:40 10/21/24 12:03 10/21/24 08:45 Range/Units White Blood Count 11.1 H 4.4-10.8 10^3/uL Red Blood Count 4.43 4.0-5.20 10^6/uL Hemoglobin 12.8 12.2-16.2 g/dL Hematocrit 37.2 # 36.0-46.0 % Mean Corpuscular Volume 84.0 80.0-100.0 fL Mean Corpuscular Hemoglobin 28.8 28.0-32.0 pg Mean Corpuscular Hemoglobin Concent 34.3 32.0-36.0 g/dL Red Cell Distribution Width 13.6 11.8-14.3 % Platelet Count 251 140-450 10^3/uL Mean Platelet Volume 10.2 6.9-10.8 fL Neutrophils (%) (Auto) 74.0 37.0-80.0 % Lymphocytes (%) (Auto) 14.2 10.0-50.0 % Monocytes (%) (Auto) 9.7 0.0-12.0 % Eosinophils (%) (Auto) 2.0 0.0-7.0 % Basophils (%) (Auto) 0.1 0.0-2.0 % Neutrophils # (Auto) 8.2 1.6-8.6 10 ^3/uL Lymphocytes # (Auto) 1.6 0.4-5.4 10 ^3/uL Monocytes # (Auto) 1.1 0-1.3 10 ^3/uL Eosinophils # (Auto) 0.2 0-0.8 10 ^3/uL Basophils # (Auto) 0 0-0.2 10 ^3/uL Nucleated Red Blood Cells 0.0 % Sodium Level 141 136-145 mmol/L Potassium Level 4.0 3.5-5.1 mmol/L Chloride Level 107 98-107 mmol/L Carbon Dioxide Level 22 20-31 mmol/L Anion Gap 12 5-15 Blood Urea Nitrogen 7 L 9-23 mg/dL Creatinine 0.79 0.550-1.02 mg/dL Glomerular Filtration Rate Calc 97 >90 mL/min BUN/Creatinine Ratio 8.9 L 10.0-20.0 Serum Glucose 111 H 74-106 mg/dL Calcium Level 9.2 8.7-10.4 mg/dL Total Bilirubin 0.9 0.2-1.0 mg/dL Aspartate Amino Transferase (AST) 16 13-40 U/L Alanine Aminotransferase (ALT) 12 7-40 U/L Alkaline Phosphatase 86 46-116 U/L Total Protein 7.2 5.7-8.2 g/dL Albumin 4.4 3.2-4.8 g/dL Prothrombin Time 11.9 H 9.3-11.8 sec Prothrombin Time INR 1.14 0.9-1.15 Activated Partial Thromboplast Time 27.5 24.5-34.5 SEC Lactic Acid Level 1.2 0.4-2.0 mmol/L Urine Color Light-orange Yellow Urine Clarity Turbid H Clear Urine pH 6.0 5.0-9.0 Urine Specific [place] 1.029 1.001-1.035 Urine Protein 2+ H Negative Urine Ketones 4+ H Negative Urine Blood Trace H Negative /uL Urine Nitrite Negative Negative Urine Bilirubin 1+ H Negative Urine Urobilinogen 3 H Negative mg/dL Urine Leukocyte Esterase 3+ Negative /uL Urine RBC 11 0 - 4 /hpf Urine Microscopic WBC 81 H 0-5 /HPF Urine Squamous Epithelial Cells Mod <5 /hpf Urine Bacteria Few H None Seen /hpf Urine Hyaline Casts Few 0 - 2 /lpf Urine Mucus Few None Seen Urine Glucose Trace Normal mg/dL Assessment [id number] C/O RUQ PAIN CT SCAN AC CHOLECYSTITIS LFT PENDING CONSIDER EMERGENT SURGERY BASED ON ON GOING EVAL BENEFITS RISKS DISCUSSED PT CONSENT NURSE AT BEDSIDE Plan discussed with: Patient DHARMESH CLARKE MD Oct 22, 2024 09:25
[2024-10-22] MEDS: SODIUM CHLORIDE 0.9% 1,000 ML IV SCH (10:45)
--- NOTE | 2024-10-22 10:55 | DVHINCON2 ---
DATE OF CONSULTATION: 10/22/2024 HISTORY OF PRESENT ILLNESS: This patient is 39 years old coming with right upper quadrant pain. She has had this happen before but not as bad and no nausea or vomiting. No constipation or diarrhea. No hematochezia or melena. No bleeding per rectum. PAST MEDICAL HISTORY: Diabetes and hypertension. PAST SURGICAL HISTORY: Nothing significant. PHYSICAL EXAMINATION: VITAL SIGNS: Afebrile. Stable signs. HEENT: No evidence of pallor, cyanosis, or jaundice. NECK: Supple and nontender with no thyromegaly or lymphadenopathy. CHEST AND LUNGS: Clear. HEART: Within normal limits. ABDOMEN: Soft. Tender in the right upper quadrant with minimal rebound. EXTREMITIES: Unremarkable. NEUROLOGICAL: Intact. CLINICAL IMPRESSION: Acute cholecystitis. PLAN: Laparoscopic, possible open, cholecystectomy. Benefits and risks discussed and consent obtained. MD ARIEL Tony/JHOANA TID: [id number] RECEIPT: [id number] cc: Tres Larry NP
[2024-10-22] MEDS ORDERED: fentaNYL CITRATE 100 MCG/2 ML VL ONE ×2 (10:56→13:38)
[2024-10-22] MEDS ORDERED: HYDROmorphone HCL 2 MG/ML VL/or syr ONE (10:56)
[2024-10-22] MEDS ORDERED: MIDAZOLAM HCL 2MG/2ML 2ml VIAL (1mg/ml) ONE (10:57)
[2024-10-22] MEDS ORDERED: PROPOFOL 10 MG/ML 20 ML IV ONE (11:52)
[2024-10-22] MEDS ORDERED: hydrALAZINE HCL 20 MG/ML VL IV PRN (12:00)
[2024-10-22] MEDS ORDERED: MORPHINE SULFATE 4 MG/ML SYR/VIAL IV PRN (12:00)
[2024-10-22] MEDS ORDERED: MIDAZOLAM HCL 2MG/2ML 2ml VIAL (1mg/ml) IV PRN (12:00)
[2024-10-22] MEDS: BUPIVACAINE 0.25% INJ 50ML VIAL ONE (12:08)
[2024-10-22] MEDS ORDERED: ONDANSETRON HCL 4 MG/2 ML VIAL ONE (12:13)
[2024-10-22] MEDS ORDERED: KETOROLAC TROMETH 30 MG/ML 1ML VIAL ONE (13:17)
[2024-10-22] MEDS ORDERED: ESMOLOL HCL 10 ML IV ONE (13:17)
[2024-10-22] MEDS ORDERED: SUGAMMADEX 200mg/2ml Vial (100MG/ML) IV ONE (13:40)
[2024-10-22] MEDS: KETOROLAC TROMETH 30 MG/ML 1ML VIAL IV ONE (14:00)
--- NOTE | 2024-10-22 14:04 | DVHOP2 ---
Operative Report [id number] AC CHOLECYSTITIS EMPYEMA OF THE GB LAP ANGELIQUE LAP CHOLECYSTOSTOMY LAP CHOLECYSTECTOMY EBL 50 CC ONE DRAIN NO COMPLICATIONS STABLE TRANSFER TO RECOVERY ROOM DHARMESH CLARKE MD Oct 22, 2024 14:04
[2024-10-22] MEDS: LABETALOL HCL 20 MG/4 ML VL IV ONE (14:10)
[2024-10-22] MEDS: HYDROmorphone HCL 2 MG/ML VL/or syr IV PRN (14:10)
[2024-10-22] MEDS: ONDANSETRON HCL 4 MG/2 ML VIAL IV ONE (14:12)
--- NOTE | 2024-10-22 14:21 | DVHOP ---
DATE OF SURGERY: 10/22/2024 PREOPERATIVE DIAGNOSES: Acute cholecystitis, was found to have intraabdominal adhesions with acute empyema, cholecystitis. POSTOPERATIVE DIAGNOSES: Acute cholecystitis, was found to have intraabdominal adhesions with acute empyema, cholecystitis. PROCEDURES: Laparoscopic lysis of adhesions with laparoscopic cholecystostomy and laparoscopic cholecystectomy. SURGEON: Sam Brandt MD CREATIVE SERVICES MANAGER: None. ANESTHESIA: General. BLOOD LOSS: Close to 50 mL. DRAINS: One drain was used. COMPLICATIONS: No complications encountered. DESCRIPTION OF PROCEDURE: The patient was prepped and draped in the usual sterile fashion in the supine position and a supraumbilical incision was applied. It was taken down to the fascia. The Veress needle was introduced and CO2 insufflation was started with a pressure of 15 mmHg. The needle was withdrawn and replaced by the 5 mm trocar. The telescope introduced and the gallbladder was found to be acutely inflamed and distended with thickened gallbladder wall, empyema of the gallbladder, and adhesions from the omental tissue. A 12 mm port was applied close to the xiphisternum and two 5 mm ports were applied more laterally to the subcostal line. With instruments in place, the patient in the head up and right lateral position. The omental tissue was taken down meticulously and the duodenum also was kept out of harm's way at all times and the gallbladder had to be decompressed doing a laparoscopic cholecystostomy and there was empyema of the gallbladder. The gallbladder was then grasped at the fundus and the infundibulum and the cystic duct and artery were and dissected out meticulously and clipped proximally and distally using Hem-o-nata clips and divided in between, making sure the CBD was kept out of harm's way at all times. The gallbladder was detached from the liver bed using Harmonic dissection, placed in an Endo Catch bag, and removed from the xiphisternal wound without any complication. The xiphisternal wound had to be widened to allow the size of the gallbladder and the stones that had impacted the gallbladder as well to be removed safely. With this being done, the trocar was replaced back. Irrigation performed. Hemostasis was secured and Abdon powder and SNoW coagulant was applied to the liver bed for hemostasis and size 19 Walker drainage was placed to drain the liver bed, bringing it out through the lateral subcostal incision. After that, one port had been withdrawn and then the Endo Close suture was used for the fascial closure of the xiphisternal wound. All the port sites were withdrawn after all the CO2 had been let out and the patient was placed back supine. The wounds were then brought together using 3-0 Monocryl suture in a subcuticular fashion. Sterile gauze applied. The patient tolerated procedure well, was taken back to the recovery room in a stable condition. MD ARIEL Tony/JHOANA TID: [id number] RECEIPT: [id number] cc: Princess Campbell MD
--- NOTE | 2024-10-22 14:34 | DVHPNRES ---
Progress Note Date Seen: Oct 22, 2024 Resident Creating Document: PARAG NAILS Medical Necessity Reason Pt with a Central, PICC or Fol: No Subjective Review of Systems Patient is a 39-year-old female with past medical history of hypertension, type 2 diabetes, who comes in due to abdominal pain. According to the patient, she has been experiencing abdominal pain since Sunday which she localizes to the right upper quadrant with radiation to the right flank, patient ranks the pain as 6/10 in intensity and sharp in nature, constant without any exacerbating and relieving factors. Patient notes pain is associated with nausea and [address] scan confirmed cholelithiasis with possible cholecystitis. Surgery was consulted. Past surgical history: Denies Social & Personal history: Denies smoking, alcohol, drugs. Lives at home with family. Allergies: Denies Patient seen and examined at bedside. Patient is alert and oriented to time, place person and responding to all questions. Eyes: No Pain, No Vision change, No Conjunctivae inflammation, No Eyelid inflammation, No Other, No Redness ENT: No Ear pain, No Ear discharge, No Nose pain, No Nose discharge, No Nose congestion, No Mouth pain, No Mouth swelling, No Throat pain, No Throat swelling, No Other Cardiovascular: No Chest Pain, No Palpitations, No Orthopnea, No Paroxysmal No Dyspnea, No Edema, No Lt Headedness, No Other Respiratory: No Cough, No Dry, No Shortness of breath, No SOB with exertion, No Wheezing, No Hemoptysis, No Pleuritic Pain, No Sputum, No Other Gastrointestinal: Nausea, Vomiting, Abdominal Pain, No Diarrhea, No Constipation, No Melena, No Hematochezia, No Other Genitourinary: No Dysuria, Frequency, No Incontinence, No Hematuria, No Retention, No Other Musculoskeletal: No other, No neck pain, No shoulder pain, No arm pain, No back pain, No hand pain, No leg pain, No foot pain Skin: No Rash, No Lesions, No Jaundice, No Bruising, No Other Objective vital signs Vital Sign Date Time Temp Pulse Resp B/P (MAP) Pulse Ox O2 Delivery O2 Flow Rate FiO2 10/22/24 14:10 117 157/101 10/22/24 14:10 15 10/22/24 09:00 97.2 97 97.2 10/22/24 08:00 Room Air* 0 21 Total Intake and Output 8/5/25 8/5/25 8/6/25 15:00 23:00 07:00 Intake Total 1200 ml Balance 1200 ml medications Current Medications Medications Dose Ordered Sig/Glenis Route Start Time Stop Time Status Last Admin Dose Admin Ceftriaxone Sodium 50 ml @ 100 mls/hr DAILY@09 IV 10/22/24 09:00 10/22/24 08:52 100 MLS/HR Metronidazole 100 ml @ 100 mls/hr Q8HR IV 10/21/24 22:00 10/22/24 05:10 100 MLS/HR Pantoprazole Sodium 40 mg DAILY IV 10/22/24 10:00 10/22/24 08:52 40 MG Ondansetron HCl 4 mg Q4HP PRN IV 10/21/24 20:30 Sodium Chloride 1,000 ml @ 125 mls/hr Q8H IV 10/22/24 10:45 Morphine Sulfate 1 mg Q4HP PRN IV 10/22/24 10:45 Examination General Appearance: Cooperative. Well developed. Well nourished. In moderate distress Head Exam: Normal inspection Neck Exam: Normal inspection. Non-tender. Normal alignment Pulmonary/Respiratory: Chest non-tender. Clear bilateral breath sounds, no crackles, no wheezing. Cardiovascular/Chest: Regular rate and rhythm. No murmurs. No JVD. Peripheral Pulses: 2+ Radial (R). 2+ Radial (L). 2+ Pedal (R). 2+ Pedal (L) Abdominal Exam: Generalized abdominal tenderness to palpation, most pronounced in the right upper quadrant. Positive Rodriguez sign. Positive bowel sounds. Ankle Exam: Negative ankle edema Lower extremities: Negative lower extremity edema Neuro/Mental Status: A&O x4. Coherent. Thoughts/Psych: Normal thought pattern. Appropriate mood and affect. Good judgement and insight Skin Exam: Normal inspection. Normal color. Warm. Dry laboratory and microbiology Laboratory Tests 10/22/24 06:33 Test 10/22/24 06:33 Range/Units Serum Glucose 111 H 74-106 mg/dL Microbiology Date/Time Source Procedure Growth Status 10/21/24 12:03 Blood Blood Culture - Preliminary NO GROWTH AFTER 24 HOURS OF INCUBATION. Resulted Labs and/or images reviewed: Labs reviewed by me, Image(s) reviewed by me Problem List/Assessment/Plan Problem List/Assessment/Plan # Acute intractable abdominal pain due to acute cholecystitis # Sepsis due to above - IV NS - IV ceftriaxone - IV metronidazole - surgery consult: Patient underwent cholecystectomy on 10/22/2024 # Acute complicated UTI - IV ceftriaxone # Type 2 diabetes - currently NPO - monitor # Essential hypertension - resumed home medication lisinopril PUD prophylaxis: protonix 40mg DVT prophylaxis: Patient is ambulatory Goals of care: Full code, discussed for >16 minutes on 10/22/2024 Plan discussed with patient Plan discussed with Dr. Campbell Plan discussed with: Patient, Other My Orders My Orders Orders - PARAG NAILS RESIDENT Procedure Category Date Status Time Complete Blood Count LAB 10/23/24 Verified 04:00 Basic Metabolic Panel LAB 10/23/24 Verified 04:00 Date of Service: Oct 22, 2024 Billing Provider: STAR CAMPBELL MD Common Visit Codes: [id number] INP/OBS CARE(HIGH) PARAG NAILS RESIDENT Oct 22, 2024 14:34 TOMAS ALVARADO RESIDENT Oct 22, 2024 15:13 STAR CAMPBELL MD Oct 26, 2024 21:15
[2024-10-22] MEDS: KETOROLAC TROMETH 30 MG/ML 1ML VIAL IV PRN (21:35)
[2024-10-23] VITALS (8 sets, daily range): BP systolic 147–175; BP diastolic 80–107; PULSE 98–116; RESP 16–20; TEMP 97.9–99; O2SAT 93–98
[2024-10-23] MEDS: LISINOPRIL 20 MG TAB PO SCH (06:01)
[2024-10-23 07:26] LABS: Hematocrit 36.9 % (36.0-46.0); Hemoglobin 12.5 g/dL (12.2-16.2); Mean Corpuscular Hemoglobin 28.3 pg (28.0-32.0); Mean Corpuscular Volume 83.6 fL (80.0-100.0); Nucleated Red Blood Cells % 0.0 %
[2024-10-23 07:34] LABS: Anion Gap 11 (5-15); Potassium 4.1 mmol/L (3.5-5.1); Sodium 140 mmol/L (136-145)
[2024-10-23 07:35] LABS: Calcium 9.4 mg/dL (8.7-10.4)
[2024-10-23 07:40] LABS: BUN/Creatinine Ratio 14.5 (10.0-20.0); Blood Urea Nitrogen 12 mg/dL (9-23)
[2024-10-23 07:42] LABS: Carbon Dioxide 20 mmol/L (20-31); Chloride 109 mmol/L (98-107); Glucose 136 mg/dL (74-106)
[2024-10-23] MEDS: MORPHINE SULFATE INJ 2 MG/ml SYRG IV PRN (08:54)
[2024-10-23 10:00] LABS: Alanine Aminotransferase 29.0 U/L (7-40); Albumin 4.2 g/dL (3.2-4.8); Alkaline Phosphatase 92.0 U/L (46-116); Bilirubin, Direct 0.2 mg/dL (<0.3); Bilirubin, Total 0.4 mg/dL (0.2-1.0); Total Protein 7.0 g/dL (5.7-8.2)
[2024-10-23 12:53] LABS: Triglycerides 61 mg/dL (< 150)
[2024-10-23 12:55] LABS: HDL Cholesterol 48 mg/dL (40-59)
[2024-10-23 12:56] LABS: Cholesterol 113 mg/dL (< 200)
--- NOTE | 2024-10-23 15:20 | DVHPNRES ---
Progress Note Date Seen: Oct 23, 2024 Resident Creating Document: PARAG NAILS Medical Necessity Reason Pt with a Central, PICC or Fol: No Subjective Review of Systems Patient is a 39-year-old female with past medical history of hypertension, type 2 diabetes, who comes in due to abdominal pain. According to the patient, she has been experiencing abdominal pain since Sunday which she localizes to the right upper quadrant with radiation to the right flank, patient ranks the pain as 6/10 in intensity and sharp in nature, constant without any exacerbating and relieving factors. Patient notes pain is associated with nausea and [address] scan confirmed cholelithiasis with possible cholecystitis. Surgery was consulted. Patient seen and examined at bedside. Patient states she is well. On evaluation today, abdomen shows clear wound healing with drain in place 30 cc serosanguineous. Patient is alert and oriented to time, place person and responding to all questions. Objective vital signs Vital Sign Date Time Temp Pulse Resp B/P (MAP) Pulse Ox O2 Delivery O2 Flow Rate FiO2 10/23/24 13:00 98.4 116 20 175/101 (125) 97 98.4 10/23/24 07:40 Nasal Cannula* 2 28 Total Intake and Output 10/22/24 10/22/24 10/23/24 15:00 23:00 07:00 Intake Total 150 ml 100 ml 100 ml Output Total 3 ml 10 ml Balance 147 ml 90 ml 100 ml medications Current Medications Medications Dose Ordered Sig/Glenis Route Start Time Stop Time Status Last Admin Dose Admin Ceftriaxone Sodium 50 ml @ 100 mls/hr DAILY@09 IV 10/22/24 09:00 10/23/24 08:53 100 MLS/HR Pantoprazole Sodium 40 mg DAILY IV 10/22/24 10:00 10/23/24 08:54 40 MG Ondansetron HCl 4 mg Q4HP PRN IV 10/21/24 20:30 Sodium Chloride 1,000 ml @ 125 mls/hr Q8H IV 10/22/24 10:45 Morphine Sulfate 1 mg Q4HP PRN IV 10/22/24 10:45 10/23/24 08:54 1 MG Lisinopril 20 mg DAILY PO 10/23/24 10:00 10/23/24 06:01 20 MG Metronidazole 100 ml @ 100 mls/hr Q8H IV 10/22/24 15:30 8/7/25 13:15 100 MLS/HR Ketorolac Tromethamine 15 mg Q8HP PRN IV 10/22/24 18:30 10/27/24 18:29 10/22/24 21:35 15 MG Examination General Appearance: Cooperative. Well developed. Well nourished. In moderate distress Head Exam: Normal inspection Neck Exam: Normal inspection. Non-tender. Normal alignment Pulmonary/Respiratory: Chest non-tender. Clear bilateral breath sounds, no crackles, no wheezing. Cardiovascular/Chest: Regular rate and rhythm. No murmurs. No JVD. Peripheral Pulses: 2+ Radial (R). 2+ Radial (L). 2+ Pedal (R). 2+ Pedal (L) Abdominal Exam: Generalized abdominal tenderness to palpation, most pronounced in the right upper quadrant. Positive Rodriguez sign. Positive bowel sounds. Ankle Exam: Negative ankle edema Lower extremities: Negative lower extremity edema Neuro/Mental Status: A&O x4. Coherent. Thoughts/Psych: Normal thought pattern. Appropriate mood and affect. Good judgement and insight Skin Exam: Normal inspection. Normal color. Warm. Dry laboratory and microbiology Laboratory Tests 10/23/24 06:25 Test 10/23/24 06:25 Range/Units Serum Glucose 136 H 74-106 mg/dL Microbiology Date/Time Source Procedure Growth Status 10/21/24 12:03 Blood Blood Culture - Preliminary NO GROWTH AFTER 48 HOURS OF INCUBATION. Resulted Labs and/or images reviewed: Labs reviewed by me, Image(s) reviewed by me Problem List/Assessment/Plan Problem List/Assessment/Plan # Acute intractable abdominal pain due to acute cholecystitis # Sepsis due to above - IV NS - IV ceftriaxone - IV metronidazole - surgery consult: Patient underwent cholecystectomy on 10/22/2024 - Abdomen soft wounds healing - Drain in place 30 cc serosanguineous - Ketorolac 15 mg # Acute complicated UTI - IV ceftriaxone # Type 2 diabetes - currently NPO - monitor H1c # Essential hypertension - resumed home medication lisinopril PUD prophylaxis: protonix 40mg DVT prophylaxis: Patient is ambulatory Goals of care: Full code, discussed for >16 minutes on 10/23/2024 Plan discussed with patient Plan discussed with Dr. Campbell Plan discussed with: Patient, Other (RN) Date of Service: Oct 23, 2024 Billing Provider: STAR CAMPBELL MD Common Visit Codes: [id number] INP/OBS CARE(HIGH) PARAG NAILS RESIDENT Oct 23, 2024 15:20 STAR CAMPBELL MD Oct 26, 2024 21:15
--- NOTE | 2024-10-23 16:13 | DVHPN2 ---
Progress Note Date Seen: Oct 23, 2024 Medical Necessity Reason Pt with a Central, PICC or Fol: No Objective vital signs Vital Sign Date Time Temp Pulse Resp B/P (MAP) Pulse Ox O2 Delivery O2 Flow Rate FiO2 10/23/24 13:00 98.4 116 20 175/101 (125) 97 98.4 10/23/24 07:40 Nasal Cannula* 2 28 Total Intake and Output 10/22/24 10/22/24 10/23/24 15:00 23:00 07:00 Intake Total 150 ml 100 ml 100 ml Output Total 3 ml 10 ml Balance 147 ml 90 ml 100 ml medications Current Medications Medications Dose Ordered Sig/Glenis Route Start Time Stop Time Status Last Admin Dose Admin Ceftriaxone Sodium 50 ml @ 100 mls/hr DAILY@09 IV 10/22/24 09:00 10/23/24 08:53 100 MLS/HR Pantoprazole Sodium 40 mg DAILY IV 10/22/24 10:00 10/23/24 08:54 40 MG Ondansetron HCl 4 mg Q4HP PRN IV 10/21/24 20:30 Sodium Chloride 1,000 ml @ 125 mls/hr Q8H IV 10/22/24 10:45 Morphine Sulfate 1 mg Q4HP PRN IV 10/22/24 10:45 10/23/24 08:54 1 MG Lisinopril 20 mg DAILY PO 10/23/24 10:00 10/23/24 06:01 20 MG Metronidazole 100 ml @ 100 mls/hr Q8H IV 10/22/24 15:30 10/23/24 13:15 100 MLS/HR Ketorolac Tromethamine 15 mg Q8HP PRN IV 10/22/24 18:30 10/27/24 18:29 10/22/24 21:35 15 MG laboratory and microbiology Laboratory Tests 10/23/24 06:25 Test 10/23/24 06:25 Range/Units Serum Glucose 136 H 74-106 mg/dL Microbiology Date/Time Source Procedure Growth Status 10/21/24 12:03 Blood Blood Culture - Preliminary NO GROWTH AFTER 48 HOURS OF INCUBATION. Resulted Problem List/Assessment/Plan Problem List/Assessment/Plan AFEBRILE VSS ABD SOFT WOUNDS HEALING DRAIN IN PLACE 30 CC SEROSANGUINEOUS LFT ELEVATED BUT TRENDING DOWN NO COMPLICATIONS ADVANCE DIET ALEJANDRINA Plan discussed with: Patient DHARMESH CLARKE MD Oct 23, 2024 16:13
[2024-10-24] VITALS (10 sets, daily range): BP systolic 146–163; BP diastolic 88–107; PULSE 60–109; RESP 14–18; TEMP 97.3–99; O2SAT 93–98
[2024-10-24 09:10] LABS: Hematocrit 36.5 % (36.0-46.0); Hemoglobin 12.0 g/dL (12.2-16.2); Mean Corpuscular Hemoglobin 27.6 pg (28.0-32.0); Mean Corpuscular Volume 83.6 fL (80.0-100.0); Nucleated Red Blood Cells % 0.0 %
[2024-10-24 09:22] LABS: Alanine Aminotransferase 23 U/L (7-40); Albumin 4.2 g/dL (3.2-4.8); Alkaline Phosphatase 83 U/L (46-116); Anion Gap 11 (5-15); BUN/Creatinine Ratio 12.0 (10.0-20.0); Bilirubin, Total 0.4 mg/dL (0.2-1.0); Blood Urea Nitrogen 11 mg/dL (9-23); Calcium 9.2 mg/dL (8.7-10.4); Carbon Dioxide 23 mmol/L (20-31); Chloride 109 mmol/L (98-107); Glucose 164 mg/dL (74-106); Potassium 3.5 mmol/L (3.5-5.1); Sodium 143 mmol/L (136-145); Total Protein 7.0 g/dL (5.7-8.2)
--- NOTE | 2024-10-24 14:35 | DVHPNRES ---
Progress Note Date Seen: Oct 24, 2024 Resident Creating Document: PARAG NAILS Medical Necessity Reason Pt with a Central, PICC or Fol: No Subjective Review of Systems Patient is a 39-year-old female with past medical history of hypertension, type 2 diabetes, who comes in due to abdominal pain. According to the patient, she has been experiencing abdominal pain since Sunday which she localizes to the right upper quadrant with radiation to the right flank, patient ranks the pain as 6/10 in intensity and sharp in nature, constant without any exacerbating and relieving factors. Patient notes pain is associated with nausea and [address] scan confirmed cholelithiasis with possible cholecystitis. Surgery was consulted. Patient seen and examined at bedside. Patient states she is well. On evaluation today, abdomen shows clear wound healing with drain in place 30 cc serosanguineous. Patient is alert and oriented to time, place person and responding to all questions. Postoperatively, patient's blood pressure increased but came down after administration of lisinopril. Per the surgeon's recommendation, patient will remain has for 1 more day for stability and is planned to discharge tomorrow Objective vital signs Vital Sign Date Time Temp Pulse Resp B/P (MAP) Pulse Ox O2 Delivery O2 Flow Rate FiO2 10/24/24 13:00 97.6 109 14 162/102 (122) 98 97.6 10/24/24 07:48 Room Air* 0 21 Total Intake and Output 10/23/24 10/23/24 10/24/24 15:00 23:00 07:00 Intake Total 250 ml 1400 ml 150 ml Output Total 10 ml 5 ml Balance 240 ml 1395 ml 150 ml medications Current Medications Medications Dose Ordered Sig/Glenis Route Start Time Stop Time Status Last Admin Dose Admin Ceftriaxone Sodium 50 ml @ 100 mls/hr DAILY@09 IV 10/22/24 09:00 10/24/24 08:39 100 MLS/HR Pantoprazole Sodium 40 mg DAILY IV 10/22/24 10:00 10/24/24 08:39 40 MG Ondansetron HCl 4 mg Q4HP PRN IV 10/21/24 20:30 Sodium Chloride 1,000 ml @ 125 mls/hr Q8H IV 10/22/24 10:45 10/24/24 02:45 125 MLS/HR Morphine Sulfate 1 mg Q4HP PRN IV 10/22/24 10:45 10/23/24 08:54 1 MG Lisinopril 20 mg DAILY PO 10/23/24 10:00 10/24/24 08:40 20 MG Metronidazole 100 ml @ 100 mls/hr Q8H IV 10/22/24 15:30 10/24/24 07:18 100 MLS/HR Ketorolac Tromethamine 15 mg Q8HP PRN IV 10/22/24 18:30 10/27/24 18:29 10/22/24 21:35 15 MG Examination General Appearance: Cooperative. Well developed. Well nourished. In moderate distress Head Exam: Normal inspection Neck Exam: Normal inspection. Non-tender. Normal alignment Pulmonary/Respiratory: Chest non-tender. Clear bilateral breath sounds, no crackles, no wheezing. Cardiovascular/Chest: Regular rate and rhythm. No murmurs. No JVD. Peripheral Pulses: 2+ Radial (R). 2+ Radial (L). 2+ Pedal (R). 2+ Pedal (L) Abdominal Exam: Generalized abdominal tenderness to palpation, most pronounced in the right upper quadrant. Positive Rodriguez sign. Positive bowel sounds. Ankle Exam: Negative ankle edema Lower extremities: Negative lower extremity edema Neuro/Mental Status: A&O x4. Coherent. Thoughts/Psych: Normal thought pattern. Appropriate mood and affect. Good judgement and insight Skin Exam: Normal inspection. Normal color. Warm. Dry laboratory and microbiology Laboratory Tests 10/24/24 08:15 Test 10/24/24 08:15 Range/Units Serum Glucose 164 H 74-106 mg/dL Microbiology Date/Time Source Procedure Growth Status 10/21/24 12:03 Blood Blood Culture - Preliminary NO GROWTH AFTER 72 HOURS OF INCUBATION. Resulted Labs and/or images reviewed: Labs reviewed by me, Image(s) reviewed by me Problem List/Assessment/Plan Problem List/Assessment/Plan # Acute intractable abdominal pain due to acute cholecystitis # Sepsis due to above - IV NS - IV ceftriaxone - IV metronidazole - surgery consult: Patient underwent Laparoscopic cholecystectomy on 10/22/2024 - Abdomen soft wounds healing - Drain in place 30 cc serosanguineous - Ketorolac 15 mg - Decadron Injection 10mg # Acute complicated UTI - IV ceftriaxone 50ml # Type 2 diabetes - currently NPO - monitor H1c # Essential hypertension - Lisinopril 20 mg PUD prophylaxis: protonix 40mg DVT prophylaxis: Patient is ambulatory Goals of care: Full code, discussed for >16 minutes on 10/24/2024 Plan discussed with patient Plan discussed with Dr. Campbell Plan discussed with: Patient, Other (RN) My Orders My Orders Orders - PARAG NAILS Procedure Category Date Status Time Complete Blood Count LAB 10/25/24 Verified 04:00 Basic Metabolic Panel LAB 10/25/24 Verified 04:00 Date of Service: Oct 24, 2024 Billing Provider: STAR CAMPBELL MD Common Visit Codes: [id number] INP/OBS CARE(HIGH) PARAG NAILS Oct 24, 2024 14:35 STAR CAMPBELL MD Oct 26, 2024 21:16
--- NOTE | 2024-10-24 20:27 | DVHPN2 ---
Progress Note Date Seen: Oct 24, 2024 Medical Necessity Reason Pt with a Central, PICC or Fol: No Objective vital signs Vital Sign Date Time Temp Pulse Resp B/P (MAP) Pulse Ox O2 Delivery O2 Flow Rate FiO2 10/24/24 16:54 97.3 97 14 156/100 (118) 98 97.3 10/24/24 07:48 Room Air* 0 21 Total Intake and Output 10/23/24 10/23/24 10/24/24 15:00 23:00 07:00 Intake Total 250 ml 1400 ml 150 ml Output Total 10 ml 5 ml Balance 240 ml 1395 ml 150 ml medications Current Medications Medications Dose Ordered Sig/Glenis Route Start Time Stop Time Status Last Admin Dose Admin Ceftriaxone Sodium 50 ml @ 100 mls/hr DAILY@09 IV 10/22/24 09:00 10/24/24 08:39 100 MLS/HR Pantoprazole Sodium 40 mg DAILY IV 10/22/24 10:00 10/24/24 08:39 40 MG Ondansetron HCl 4 mg Q4HP PRN IV 10/21/24 20:30 Sodium Chloride 1,000 ml @ 125 mls/hr Q8H IV 10/22/24 10:45 10/24/24 02:45 125 MLS/HR Morphine Sulfate 1 mg Q4HP PRN IV 10/22/24 10:45 10/23/24 08:54 1 MG Lisinopril 20 mg DAILY PO 10/23/24 10:00 10/24/24 08:40 20 MG Metronidazole 100 ml @ 100 mls/hr Q8H IV 10/22/24 15:30 10/24/24 14:59 100 MLS/HR Ketorolac Tromethamine 15 mg Q8HP PRN IV 10/22/24 18:30 10/27/24 18:29 10/22/24 21:35 15 MG laboratory and microbiology Laboratory Tests 10/24/24 08:15 Test 10/24/24 08:15 Range/Units Serum Glucose 164 H 74-106 mg/dL Microbiology Date/Time Source Procedure Growth Status 10/21/24 12:03 Blood Blood Culture - Preliminary NO GROWTH AFTER 72 HOURS OF INCUBATION. Resulted Problem List/Assessment/Plan Problem List/Assessment/Plan AFEBRILE VSS ABD SOFT WOUNDS HEALING DRAIN IN PLACE 25 CC SEROSANGUINEOUS LFT ELEVATED BUT TRENDING DOWN NO COMPLICATIONS ADVANCE DIET ALEJANDRINA CONSIDER DC DRAIN AM Plan discussed with: Patient DHARMESH CLARKE MD Oct 24, 2024 20:27
[2024-10-24] MEDS: hydrALAZINE HCL 20 MG/ML VL IV ONE (22:36)
[2024-10-25] VITALS (8 sets, daily range): BP systolic 129–161; BP diastolic 85–99; PULSE 89–113; RESP 16–18; TEMP 91.8–98.7; O2SAT 95–98
[2024-10-25] MEDS: METOPROLOL TARTRATE 25 MG TAB PO ONE (06:22)
[2024-10-25 10:40] LABS: Hematocrit 37.2 % (36.0-46.0); Hemoglobin 12.3 g/dL (12.2-16.2); Mean Corpuscular Hemoglobin 27.9 pg (28.0-32.0); Mean Corpuscular Volume 84.4 fL (80.0-100.0); Nucleated Red Blood Cells % 0.0 %
[2024-10-25 10:43] LABS: Sodium 140 mmol/L (136-145)
[2024-10-25 10:44] LABS: Anion Gap 11 (5-15); Carbon Dioxide 22 mmol/L (20-31)
[2024-10-25 10:45] LABS: Calcium 8.9 mg/dL (8.7-10.4)
[2024-10-25 10:50] LABS: BUN/Creatinine Ratio 9.1 (10.0-20.0)
[2024-10-25 10:51] LABS: Blood Urea Nitrogen 6 mg/dL (9-23); Chloride 107 mmol/L (98-107); Glucose 159 mg/dL (74-106); Potassium 3.2 mmol/L (3.5-5.1)
--- NOTE | 2024-10-25 11:29 | DVHPN2 ---
Progress Note Date Seen: Oct 25, 2024 Medical Necessity Reason Pt with a Central, PICC or Fol: No Objective vital signs Vital Sign Date Time Temp Pulse Resp B/P (MAP) Pulse Ox O2 Delivery O2 Flow Rate FiO2 10/25/24 10:43 152/99 10/25/24 09:00 98.6 91 17 97 98.6 10/24/24 20:00 Room Air* 0 21 Total Intake and Output 10/24/24 10/24/24 10/25/24 15:00 23:00 07:00 Intake Total 150 ml 600 ml 550 ml Output Total 70 ml Balance 150 ml 600 ml 480 ml medications Current Medications Medications Dose Ordered Sig/Glenis Route Start Time Stop Time Status Last Admin Dose Admin Ceftriaxone Sodium 50 ml @ 100 mls/hr DAILY@09 IV 10/22/24 09:00 10/25/24 10:43 100 MLS/HR Pantoprazole Sodium 40 mg DAILY IV 10/22/24 10:00 10/25/24 10:43 40 MG Ondansetron HCl 4 mg Q4HP PRN IV 10/21/24 20:30 Sodium Chloride 1,000 ml @ 125 mls/hr Q8H IV 10/22/24 10:45 10/24/24 02:45 125 MLS/HR Morphine Sulfate 1 mg Q4HP PRN IV 10/22/24 10:45 10/23/24 08:54 1 MG Lisinopril 20 mg DAILY PO 10/23/24 10:00 10/25/24 10:43 20 MG Metronidazole 100 ml @ 100 mls/hr Q8H IV 10/22/24 15:30 10/25/24 06:22 100 MLS/HR Ketorolac Tromethamine 15 mg Q8HP PRN IV 10/22/24 18:30 10/27/24 18:29 10/22/24 21:35 15 MG laboratory and microbiology Laboratory Tests 10/25/24 10:22 Test 10/25/24 10:22 Range/Units Serum Glucose 159 H 74-106 mg/dL Microbiology Date/Time Source Procedure Growth Status 10/21/24 12:03 Blood Blood Culture - Preliminary NO GROWTH AFTER 72 HOURS OF INCUBATION. Resulted Problem List/Assessment/Plan Problem List/Assessment/Plan AFEBRILE VSS ABD SOFT WOUNDS HEALING DRAIN IN PLACE 45 CC SEROSANGUINEOUS LFT ELEVATED BUT TRENDING DOWN NO COMPLICATIONS ADVANCE DIET ALEJANDRINA CLEARED FOR DISCHARGE INSTRUCTIONS RE DIET ACTIVITY F/UP DRAIN CARE GIVEN NURSE AT BEDSIDE Plan discussed with: Patient DHARMESH CLARKE MD Oct 25, 2024 11:29
[2024-10-25] MEDS ORDERED: AMOX500T86 PO (15:59)
[2024-10-25] MEDS: POTASSIUM CHL 20 Meq TABLET PO ONE (16:05)
--- NOTE | 2024-10-25 16:07 | DVHDS2 ---
Discharge Summary Date of Admission Oct 21, 2024 at 18:58 Date of Discharge: Oct 25, 2024 Admitting Diagnosis Acute abdominal pain Labs/Diagnostic Data: Laboratory Results Test 10/25/24 10:22 10/24/24 08:15 10/23/24 06:25 10/22/24 06:33 White Blood Count 9.4 10^3/uL (4.4-10.8) Red Blood Count 4.41 10^6/uL (4.0-5.20) Hemoglobin 12.3 g/dL (12.2-16.2) Hematocrit 37.2 % (36.0-46.0) Mean Corpuscular Volume 84.4 fL (80.0-100.0) Mean Corpuscular Hemoglobin 27.9 pg (28.0-32.0) Mean Corpuscular Hemoglobin Concent 33.0 g/dL (32.0-36.0) Red Cell Distribution Width 14.0 % (11.8-14.3) Platelet Count 311 10^3/uL (140-450) Mean Platelet Volume 9.4 fL (6.9-10.8) Neutrophils (%) (Auto) 67.1 % (37.0-80.0) Lymphocytes (%) (Auto) 22.9 % (10.0-50.0) Monocytes (%) (Auto) 7.5 % (0.0-12.0) Eosinophils (%) (Auto) 2.0 % (0.0-7.0) Basophils (%) (Auto) 0.5 % (0.0-2.0) Neutrophils # (Auto) 6.3 10 ^3/uL (1.6-8.6) Lymphocytes # (Auto) 2.2 10 ^3/uL (0.4-5.4) Monocytes # (Auto) 0.7 10 ^3/uL (0-1.3) Eosinophils # (Auto) 0.2 10 ^3/uL (0-0.8) Basophils # (Auto) 0 10 ^3/uL (0-0.2) Nucleated Red Blood Cells 0.0 % Sodium Level 140 mmol/L (136-145) Potassium Level 3.2 mmol/L (3.5-5.1) Chloride Level 107 mmol/L (98-107) Carbon Dioxide Level 22 mmol/L (20-31) Anion Gap 11 (5-15) Blood Urea Nitrogen 6 mg/dL (9-23) Creatinine 0.66 mg/dL (0.550-1.02) Glomerular Filtration Rate Calc 114 mL/min (>90) BUN/Creatinine Ratio 9.1 (10.0-20.0) Serum Glucose 159 mg/dL (74-106) Calcium Level 8.9 mg/dL (8.7-10.4) Total Bilirubin 0.4 mg/dL (0.2-1.0) Aspartate Amino Transferase (AST) 24 U/L (13-40) Alanine Aminotransferase (ALT) 23 U/L (7-40) Alkaline Phosphatase 83 U/L (46-116) Total Protein 7.0 g/dL (5.7-8.2) Albumin 4.2 g/dL (3.2-4.8) Direct Bilirubin 0.2 mg/dL (<0.3) Triglycerides Level 61 mg/dL (< 150) Cholesterol Level 113 mg/dL (< 200) LDL Cholesterol 52 mg/dL (< 100) HDL Cholesterol 48 mg/dL (40-59) Hemoglobin A1c 6.2 % A1C (<5.7) Beta HCG, Quantitative 0.3 mIU/mL (1.5-4.2) Test 10/21/24 20:40 10/21/24 12:03 10/21/24 08:45 Prothrombin Time 11.9 sec (9.3-11.8) Prothrombin Time INR 1.14 (0.9-1.15) Activated Partial Thromboplast Time 27.5 SEC (24.5-34.5) Lactic Acid Level 1.2 mmol/L (0.4-2.0) Urine Color Light-orange (Yellow) Urine Clarity Turbid (Clear) Urine pH 6.0 (5.0-9.0) Urine Specific Ruby 1.029 (1.001-1.035) Urine Protein 2+ (Negative) Urine Ketones 4+ (Negative) Urine Blood Trace /uL (Negative) Urine Nitrite Negative (Negative) Urine Bilirubin 1+ (Negative) Urine Urobilinogen 3 mg/dL (Negative) Urine Leukocyte Esterase 3+ /uL (Negative) Urine RBC 11 /hpf (0 - 4) Urine Microscopic WBC 81 /HPF (0-5) Urine Squamous Epithelial Cells Mod /hpf (<5) Urine Bacteria Few /hpf (None Seen) Urine Hyaline Casts Few /lpf (0 - 2) Urine Mucus Few (None Seen) Urine Glucose Trace mg/dL (Normal) Other Laboratory Tests 10/25/24 10:22 Brief Hx & Hospital Course: History of Present Illness 39-year-old female presents for evaluation of abdominal. Patient endorses a two day history of right upper quadrant abdominal pain that radiates to her back with associated nausea and vomiting. Denies fever or chills. No other acute complaints reported. Course of hospitalization: CT scan of the abdomen and pelvis reveals acute cholecystitis. Patient had laparoscopic cholecystectomy. Patient's white blood cell count has improved. She is now taking oral intake without any issues. Patient is passing bowel movements. Pain has been managed without any oral narcotics. She has been cleared for discharge by in the surgeon. She will follow up in 1-2 weeks with her PCP as well as with the surgeon, Dr. Rashaad Brandt. Given her noted elevated white blood cell count, patient will be continued on antibiotic therapy with Augmentin 500 mg p.o. b.i.d. for an additional seven days. She is instructed not to lift anything greater than 5 lb until instructed to do so by her surgeon. Patient will also be discharged home with a ELIO drain for which the primary nurse will educate the patient on how to care for it. He is agreeable with discharge plan. All questions answered. Physical examination General: Alert and Oriented x3. No acute distress. Well-nourished. Eyes: EOMI. Anicteric. HENT: Moist mucous membranes. Lungs: Clear to auscultation bilaterally. No accessory muscle use. Cardiovascular: Regular rate and rhythm. No murmur. No JVD. Abdomen: Soft, non-tender and non-distended. No palpable masses. Extremities: No edema. Non-tender. Skin: No rashes or lesions. Warm. Neurologic: No focal neurological deficits. CN II-XII grossly intact, but not individually tested. Psychiatric: Cooperative. Appropriate mood and affect. Total time spent with patient discussing and formulating plan of care: 35 minutes. This medical document was created using an electronic medical record system with [employer] system. Although this document has been carefully reviewed, there may still be some phonetic and typographical errors. These areas are purely typographical due to imperfections of the software programs, and do not reflect any compromise in the patient's medical care. Consults/Reason for consult General surgery: Cholecystitis Operations or Procedures Laparoscopic cholecystectomy Condition at Discharge: Fair Final Diagnosis/Problems List Sepsis, secondary to cholecystitis Secondary diagnosis: Diabetes mellitus: New diagnosis with hemoglobin A1c 6.2. Complicated cystitis Discharge Disposition: Home Discharge Instruct/Medications Diet: Regular Activity: See Comment Activity comment: Do not lift anything greater than 5 lb until seen by Dr. Brandt Follow Up/Referral: PCP in 1-2 weeks, Dr. Peres Surgeon in 1-2 weeks, Dr. Rashaad Brandt Medications: Augmentin 500 mg p.o. b.i.d. for seven days Tylenol 500 mg OTC as needed for [id number] pain Scheduled Amoxicillin & Pot Clavulanate (Augmentin), 1 TAB PO BID Lisinopril (Lisinopril), 20 MG PO DAILY, (Reported) Metformin Hydrochloride (Metformin Hcl), 500 MG PO DAILY, (Reported) 36 Discharge Statement: "Patient was advised to return to the ER or call 911 if any headaches, dizziness, shortness of breath, chest pain, abdominal pain, bleeding, fevers, or worsening of medical condition. Patient was counseled about treatment plan, medications, possible side effects, patientverbalized understanding. All questions were answered to the best of my ability. This discharge took greater then 30 minutes in planning, reviewing documentation, counseling the patient, and discussing with other team members." ASSESSMENT ASSESSMENT Assessment Sepsis, secondary to cholecystitis Date of Service: Oct 25, 2024 Billing Provider: EZEQUIEL YEBOAH NP Common Visit Codes: 19872-HIV/OBS DISCH DAY >30min EZEQUIEL YEBOAH NP Oct 25, 2024 16:07
== END 2024-10-25 17:17 | disposition home or self-care (01) | DRG 854 ==
LOC: ER 08:39 → EEVIPCON 18:58 → OVERFLOW 18:58 → WEST WING 10-22 01:46
PROVIDERS: ADMIT Internal Medicine Geriatric Medicine; ATTEND Emergency Medicine
PROC: 0FT44ZZ Resection of Gallbladder, Percutaneous Endoscopic Approach (ICD-10-PCS; principal; 2024-10-22 11:27)
DX: A41.9 Sepsis, unspecified organism (principal); K81.0 Acute cholecystitis; K66.0 Peritoneal adhesions (postprocedural) (postinfection); E11.9 Type 2 diabetes mellitus without complications; I10 Essential (primary) hypertension; N30.90 Cystitis, unspecified without hematuria; Z83.3 Family history of diabetes mellitus; Z79.899 Other long term (current) drug therapy
CPT/HCPCS: 36415; 71045; 74176; 80048; 80053; 80061; 80076; 81001; 83036; 83605; 84702; 85025; 85610; 85730; 86850; 86900; 86901; 87040; 96361; 96365; 99291; 99292; G0378; J1100; J1885; J2250; J2405; J2470; J2704; J3490